=== PATIENT | female | born 1980 | race African-American/Black ===

== ENCOUNTER 2020-01-18 09:38 | Emergency (ER) | payer MEDICAID ==
[~2020-01-18] VITALS: Ht 170.2 cm; Wt 108.0 kg
[2020-01-18 10:01] VITALS: BP 128/85
[2020-01-18] MEDS ORDERED: cefTRIAXone SOD 1,000 MG VL IM ONE (10:45)
[2020-01-18] MEDS ORDERED: LIDOCAINE VISCOUS 2% 15ML UD PO ONE (10:45)
[2020-01-18] MEDS ORDERED: methylPREDNISolone SOD SUCC 125 MG/2 ML VL IM ONE (10:45)
== END 2020-01-18 11:17 | disposition home or self-care (01) ==
LOC: ER 09:38
DX: J03.90 Acute tonsillitis, unspecified (principal)
CPT/HCPCS: 96372; 99284; J0696; J2930

== ENCOUNTER 2020-01-22 14:33 | Emergency (ER) | payer MEDICAID, OTHER ==
[~2020-01-22] VITALS: Ht 170.2 cm; Wt 108.0 kg
[2020-01-22 15:59] VITALS: BP 133/86
[2020-01-22] MEDS ORDERED: methylPREDNISolone SOD SUCC 125 MG/2 ML VL IM ONE (16:15)
[2020-01-22] MEDS ORDERED: cefTRIAXone SOD 1,000 MG VL IM ONE (16:15)
== END 2020-01-22 17:02 | disposition home or self-care (01) ==
LOC: ER 14:33
DX: J03.90 Acute tonsillitis, unspecified (principal)
CPT/HCPCS: 96372; 99284; J0696; J2930